=== PATIENT | female | born 1960 | race Caucasian/White ===

== ENCOUNTER → 2023-09-24 09:46 | Outpatient (REF) | payer OTHER, SELFPAY ==
[2023-09-24 10:30] LABS: % Basophils 1.1 % (0-2); % Eosinophils 4.4 % (0-6); % Immature Granulocytes 0.2 % (0-0.5); % Lymphocytes 41.7 % (20.5-51.1); % Neutrophils 45.6 % (42.2-75.2); Absolute Basophils 0.1 10^3/uL (0-0.2); Absolute Eosinophils 0.2 10^3/uL (0-0.7); Absolute Lymphocytes 1.9 10^3/uL (1.2-3.4); Absolute Monocytes 0.3 10^3/uL (0.1-0.6); Absolute Neutrophils 2.1 10^3/uL (1.4-6.5); Hematocrit 39.9 % (37.0-47.0); Hemoglobin 13.3 g/dL (12.0-16.0); Mean Corp Hgb Conc. 33.3 g/dL (33.0-37.0); Mean Corpuscular Hgb 29.6 pg (27.0-31.0); Mean Corpuscular Volume 88.9 fL (81.0-99.0); Mean Platelet Volume 9.9 fL (7.4-10.4); Nucleated Red Blood Cells % 0 %; Platelet Count 202 10^3/uL (130-400); Red Blood Cell Count 4.49 10^6/uL (4.20-5.40); Red Cell Dist. Width 13.7 % (11.5-14.5); White Blood Cell Count 4.6 10^3/uL (4.8-10.8)
[2023-09-24 11:14] LABS: ALT (SGPT) 23 U/L (0-35); AST (SGOT) 36 U/L (14-36); Albumin 4.3 g/dl (3.5-5.0); Alkaline Phosphatase 64 U/L (38-126); Blood Urea Nitrogen 20 mg/dl (7-17); Calcium 9.4 mg/dl (8.4-10.2); Carbon Dioxide 26 mmol/L (22-30); Chloride 104 mmol/L (98-107); Glucose 89 mg/dl (70-99); HDL Cholesterol 95 mg/dl; LDL Cholesterol, Calculated 83 mg/dl; Potassium 4.5 mmol/L (3.5-5.1); Sodium 137 mmol/L (135-145); Total Bilirubin 0.5 mg/dl (0.2-1.3); Total Cholesterol 190 mg/dl (50-199); Total Protein 6.9 g/dl (6.3-8.2); Triglyceride 62 mg/dl (10-149); Very Low Density Lipoprotein 12 mg/dl (0-30); eGFR > 60.00
[2023-09-24 11:30] LABS: TSH Reflex To Free T4 1.66 uIU/ml (0.47-4.68)
[2023-09-24 12:16] LABS: Glycohemoglobin (HgbA1c) 5.9 % (4.0-5.6)
== END ==
LOC: REG 09:46
PROVIDERS: ATTENDING PHYSICIAN Internal Medicine
DX: R73.09 Other abnormal glucose (principal); K52.832 Lymphocytic colitis; Z13.220 Encounter for screening for lipoid disorders
CPT/HCPCS: 36415; 80053; 80061; 83036; 84443; 85025

== ENCOUNTER → 2024-02-04 09:24 | Outpatient (REF) | payer OTHER, SELFPAY | LOC: WDC 09:24 | PROVIDERS: ATTENDING PHYSICIAN Family Medicine | DX: Z12.31 Encounter for screening mammogram for malignant neoplasm of breast (principal) | CPT/HCPCS: 77063; 77067 ==

== ENCOUNTER → 2024-03-23 11:07 | Outpatient (REF) | payer OTHER, SELFPAY ==
[2024-03-23 11:51] LABS: % Basophils 0.8 % (0-2); % Eosinophils 5.2 % (0-6); % Immature Granulocytes 0.2 % (0-0.5); % Lymphocytes 38.6 % (20.5-51.1); % Monocytes 5.6 % (1.7-9.3); % Neutrophils 49.6 % (42.2-75.2); Absolute Eosinophils 0.3 10^3/uL (0-0.7); Absolute Lymphocytes 1.9 10^3/uL (1.2-3.4); Absolute Monocytes 0.3 10^3/uL (0.1-0.6); Absolute Neutrophils 2.5 10^3/uL (1.4-6.5); Hematocrit 41.7 % (37.0-47.0); Mean Corp Hgb Conc. 33.6 g/dL (33.0-37.0); Mean Corpuscular Hgb 28.8 pg (27.0-31.0); Mean Corpuscular Volume 85.8 fL (81.0-99.0); Mean Platelet Volume 9.8 fL (7.4-10.4); Nucleated Red Blood Cells % 0 %; Platelet Count 204 10^3/uL (130-400); Red Blood Cell Count 4.86 10^6/uL (4.20-5.40); Red Cell Dist. Width 14.2 % (11.5-14.5)
[2024-03-23 12:11] LABS: ALT (SGPT) 29 U/L (0-35); AST (SGOT) 38 U/L (14-36); Albumin 4.7 g/dl (3.5-5.0); Alkaline Phosphatase 48 U/L (38-126); Blood Urea Nitrogen 25 mg/dl (7-17); Calcium 9.3 mg/dl (8.4-10.2); Carbon Dioxide 27 mmol/L (22-30); Chloride 102 mmol/L (98-107); Glucose 92 mg/dl (70-99); HDL Cholesterol 102 mg/dl; LDL Cholesterol, Calculated 89 mg/dl; Potassium 5.1 mmol/L (3.5-5.1); Sodium 141 mmol/L (135-145); Total Bilirubin 0.4 mg/dl (0.2-1.3); Total Cholesterol 203 mg/dl (50-199); Total Protein 7.4 g/dl (6.3-8.2); Triglyceride 62 mg/dl (10-149); Very Low Density Lipoprotein 12 mg/dl (0-30); eGFR 55.76
[2024-03-23 12:22] LABS: Glycohemoglobin (HgbA1c) 5.7 % (4.0-5.6)
[2024-03-23 12:41] LABS: TSH Reflex To Free T4 1.47 uIU/ml (0.47-4.68)
== END ==
LOC: REG 11:07
PROVIDERS: ATTENDING PHYSICIAN Family Medicine
DX: R73.02 Impaired glucose tolerance (oral) (principal); K52.832 Lymphocytic colitis; Z13.6 Encounter for screening for cardiovascular disorders; Z13.29 Encounter for screening for other suspected endocrine disorder
CPT/HCPCS: 36415; 80053; 80061; 83036; 84443; 85025

== ENCOUNTER 2024-04-28 19:06 | Emergency (ER) | payer OTHER, SELFPAY ==
[2024-04-28 19:10] VITALS: BP 140/78
--- NOTE | 2024-04-28 19:55 | ED.MUSCINJ ---
HPI-Injury
General
Chief Complaint: Fall
Source: patient
Exam Limitations: none
Time Seen by Provider: 04/28/24 19:42
History of Present Illness-Injury
Initial Injury comments:
64-year-old [id number] female presents after trip and fall. She was walking in the parking lot and her left foot twisted and she fell onto her right knee and her right hand. She complains of pain to the anterior lateral left ankle
anterior lateral right knee and the base of the hand on the right side. She did not hit her head. No anticoagulants. No neck or back pain. She has been ambulatory since the fall.
Past History
Past History
ED Past Medical History: GERD and Other (Osteoarthritis)
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
Social History
Tobacco: Non-smoker
Alcohol: Daily
Drug: None
Personal:
Living: with family
Phy Exam
Physical Exam
Physical Exam:
General: Well-appearing female no acute respiratory distress
Musculoskeletal exam: The right hand is slightly swollen and tender over the base of the fifth metacarpal there is no deformities or malrotation of the finger. The distal radius and ulna are nontender. She is able to flex and extend as well as
radial and ulnarly deviate however this is more painful for her. The right knee is with abrasion and ecchymosis of the anterior lateral knee but no deformities effusion. She is nontender. She has good range of motion able to straight leg raise
the knee is stable ligament exam. The left foot and ankle were examined there is slight swelling in the anterior lateral ankle/proximal foot. Skin with abrasion to the right knee but intact otherwise
Neurologic exam: Alert and oriented.
Injury Course
Orders/Labs/Results
Orders:
Orders
04/28/24 19:11
CR Ankle - Left Min 3 Views Urgent
Comment:
Reason For Exam: fall
CR Hand - Right Min 3 Views Urgent
Comment:
Reason For Exam: fall
CR Knee- Right 4 Or More View* Urgent
Comment:
Reason For Exam: fall
Foot, Left 3 View [CR Foot - Left Min 3 Views] Urgent
Comment:
Reason For Exam: fall
04/28/24 19:54
[place] Wrist Right-Tx ONCE
MDM/Problems Addressed
Differential Diagnosis Includes:
Patient presents after mechanical fall mainly with right hand pain but also noted right knee and left ankle pain. X-rays of the left foot and ankle were obtained x-rays of the right knee and right hand were obtained I personally visualized all of
these films and there is no acute fracture or dislocation. She is most tender over the right hand second look at the hand x-rays again were negative. Will place in universal splint and recommend ibuprofen and Tylenol with needed follow-up for
possible occult injury
*Critical Care Note
Total Time (30-74mins, 75-104mins- exclusive of procedures): Not Applicable
ED Attending Note
-
Portions of this chart may have been created with voice recognition software.� Occasional wrong word or��sound alike� substitutions may have occurred due to the inherent limitations of voice recognition software.
Discharge Plan
Departure
Patient Disposition: Home (Routine Discharge)
Date of Disposition: 04/28/24
Time of Disposition: 19:59
Patient with high blood pressure during this ER visit?: No
Discharge Problem:
Hand sprain
Instructions: Contusion (DC), Muscle and bone pain - Discharge instructions
Prescriptions:
No Action
citalopram 20 MG tablet
20 mg PO DAILY
omeprazole [Prilosec] 10 MG capsule,delayed release(DR/EC)
10 mg PO DAILYPRN PRN (Reason: reflux)
ascorbic acid (vitamin C) 250 MG tablet,chewable
500 mg PO DAILY
multivit with min-folic acid [Multivitamin Gummies] 200 MCG tablet,chewable
1 tab PO DAILY
melatonin 5 MG tablet
30 mg sublingual HS
cannabidiol [Epidiolex] 1 UNIT solution
1 cap PO HS
cannabidiol [Epidiolex] 1 UNIT solution
1 ml sublingual DAILY
Patient Comments:
patient says she get this at the [facility] and that is has a small amount a thc in it and take tinture in am and capsules at bedtime
mupirocin 1 APPLIC ointment
1 tube topical BID Qty: 1 0RF
amoxicillin-pot clavulanate 1 TABLET tablet
1 tab PO BID 21 Days Qty: 42 0RF
hydrocodone-acetaminophen 5-300 mg tablet
0.5 tab PO BID PRN (Reason: pain) Qty: 6 0RF
Referrals:
Esau Weaver MD [Active] -
Activity Restrictions/Additional Instructions:
Use splint for right hand for support. Use ibuprofen or Tylenol for pain. Return here if worse otherwise follow-up with orthopedics for further evaluation
Interventions
Interventions:
*Risk Screen - Suicide Last Done: 04/28/24 19:10
*General Assessment Last Done: 04/28/24 19:10
*Neglect/Abuse Screening Last Done: 04/28/24 19:10
Discharge Date and Time
Print Language: SWEDISH
[2024-04-28 20:32] VITALS: BP 126/83
== END 2024-04-28 20:36 | disposition home or self-care (01) ==
LOC: EMR 19:06
PROVIDERS: EMERGENCY PHYSICIAN Emergency Medicine; FAMILY PHYSICIAN Family Medicine
DX: S63.91XA Sprain of unspecified part of right wrist and hand, initial encounter (principal); S80.01XA Contusion of right knee, initial encounter; S80.211A Abrasion, right knee, initial encounter; M25.472 Effusion, left ankle; W01.0XXA Fall on same level from slipping, tripping and stumbling without subsequent striking against object, initial encounter; K21.9 Gastro-esophageal reflux disease without esophagitis
CPT/HCPCS: 29125; 99284; 73130; 73564; 73610; 73630

== ENCOUNTER → 2024-05-28 08:36 | Outpatient (REF) | payer OTHER, SELFPAY | LOC: RAD 08:36 | PROVIDERS: ATTENDING PHYSICIAN Family Medicine | DX: M81.0 Age-related osteoporosis without current pathological fracture (principal) | CPT/HCPCS: 77080 ==

== ENCOUNTER → 2024-07-14 08:48 | Outpatient (REF) | payer OTHER, SELFPAY ==
[2024-07-14 10:37] LABS: % Basophils 0.7 % (0-2); % Eosinophils 5.9 % (0-6); % Immature Granulocytes 0.5 % (0-0.5); % Lymphocytes 35.4 % (20.5-51.1); % Monocytes 7.9 % (1.7-9.3); % Neutrophils 49.6 % (42.2-75.2); Absolute Eosinophils 0.2 10^3/uL (0-0.7); Absolute Lymphocytes 1.4 10^3/uL (1.2-3.4); Absolute Monocytes 0.3 10^3/uL (0.1-0.6); Hemoglobin 13.1 g/dL (12.0-16.0); Mean Corp Hgb Conc. 33.6 g/dL (33.0-37.0); Mean Corpuscular Volume 89.4 fL (81.0-99.0); Mean Platelet Volume 10.1 fL (7.4-10.4); Nucleated Red Blood Cells % 0 %; Platelet Count 210 10^3/uL (130-400); Red Blood Cell Count 4.36 10^6/uL (4.20-5.40); Red Cell Dist. Width 14.4 % (11.5-14.5); White Blood Cell Count 4.1 10^3/uL (4.8-10.8)
[2024-07-14 10:50] LABS: Erythrocyte Sed Rate 2 mm/hour (0-20)
[2024-07-14 10:59] LABS: ALT (SGPT) 23 U/L (0-35); AST (SGOT) 33 U/L (14-36); Albumin 4.5 g/dl (3.5-5.0); Alkaline Phosphatase 55 U/L (38-126); Blood Urea Nitrogen 20 mg/dl (7-17); Calcium 8.9 mg/dl (8.4-10.2); Carbon Dioxide 29 mmol/L (22-30); Chloride 103 mmol/L (98-107); Glucose 91 mg/dl (70-99); Sodium 138 mmol/L (135-145); Total Bilirubin 0.7 mg/dl (0.2-1.3); Total Protein 6.8 g/dl (6.3-8.2); eGFR > 60.00
[2024-07-14 11:08] LABS: C-Reactive Protein < 5.00 mg/L (0.0-10.00)
[2024-07-16 07:31] LABS: CCP Antibody IgG/IgA 5 Units (0-19)
[2024-07-16 17:33] LABS: Rheumatoid Agglutinin Less Than 10 IU (<10 IU)
== END ==
LOC: REG 08:48
PROVIDERS: ATTENDING PHYSICIAN Physician Assistant; FAMILY PHYSICIAN Family Medicine
DX: E55.9 Vitamin D deficiency, unspecified (principal); M06.9 Rheumatoid arthritis, unspecified; M81.0 Age-related osteoporosis without current pathological fracture; Z51.81 Encounter for therapeutic drug level monitoring; M79.643 Pain in unspecified hand; M54.9 Dorsalgia, unspecified
CPT/HCPCS: 36415; 72040; 72072; 72100; 73130; 80053; 85025; 85652; 86140; 86200; 86430

== ENCOUNTER → 2024-09-22 09:22 | Outpatient (REF) | payer OTHER, SELFPAY ==
[2024-09-22 10:51] LABS: % Basophils 1.1 % (0-2); % Eosinophils 5.5 % (0-6); % Immature Granulocytes 0.2 % (0-0.5); % Monocytes 7.5 % (1.7-9.3); % Neutrophils 46.7 % (42.2-75.2); Absolute Basophils 0.1 10^3/uL (0-0.2); Absolute Eosinophils 0.3 10^3/uL (0-0.7); Absolute Lymphocytes 1.8 10^3/uL (1.2-3.4); Absolute Monocytes 0.3 10^3/uL (0.1-0.6); Absolute Neutrophils 2.1 10^3/uL (1.4-6.5); Hemoglobin 13.4 g/dL (12.0-16.0); Mean Corp Hgb Conc. 33.5 g/dL (33.0-37.0); Mean Corpuscular Hgb 29.5 pg (27.0-31.0); Mean Corpuscular Volume 87.9 fL (81.0-99.0); Mean Platelet Volume 10.1 fL (7.4-10.4); Nucleated Red Blood Cells % 0 %; Platelet Count 190 10^3/uL (130-400); Red Blood Cell Count 4.55 10^6/uL (4.20-5.40); Red Cell Dist. Width 13.7 % (11.5-14.5); White Blood Cell Count 4.6 10^3/uL (4.8-10.8)
[2024-09-22 11:15] LABS: ALT (SGPT) 24 U/L (0-35); AST (SGOT) 32 U/L (14-36); Albumin 4.7 g/dl (3.5-5.0); Alkaline Phosphatase 50 U/L (38-126); Blood Urea Nitrogen 20 mg/dl (7-17); Calcium 9.5 mg/dl (8.4-10.2); Carbon Dioxide 26 mmol/L (22-30); Chloride 105 mmol/L (98-107); Glucose 87 mg/dl (70-99); HDL Cholesterol 80 mg/dl; LDL Cholesterol, Calculated 114 mg/dl; Potassium 4.6 mmol/L (3.5-5.1); Sodium 141 mmol/L (135-145); Total Bilirubin 0.7 mg/dl (0.2-1.3); Total Cholesterol 207 mg/dl (50-199); Total Protein 6.9 g/dl (6.3-8.2); Triglyceride 65 mg/dl (10-149); Very Low Density Lipoprotein 13 mg/dl (0-30); eGFR > 60.00
[2024-09-23 10:52] LABS: Glycohemoglobin (HgbA1c) 5.7 % (4.0-5.6)
== END ==
LOC: REG 09:22
PROVIDERS: ATTENDING PHYSICIAN Family Medicine
DX: R73.02 Impaired glucose tolerance (oral) (principal); K52.832 Lymphocytic colitis; R53.83 Other fatigue; Z13.6 Encounter for screening for cardiovascular disorders
CPT/HCPCS: 36415; 80053; 80061; 83036; 85025

== ENCOUNTER → 2025-02-09 13:33 | Outpatient (REF) | payer OTHER, SELFPAY | LOC: WDC 13:33 | PROVIDERS: ATTENDING PHYSICIAN Family Medicine | DX: Z12.31 Encounter for screening mammogram for malignant neoplasm of breast (principal) | CPT/HCPCS: 77063; 77067 ==

== ENCOUNTER → 2025-03-16 10:20 | Outpatient (REF) | payer OTHER, SELFPAY ==
[2025-03-16 13:06] LABS: ALT (SGPT) 22 U/L (0-35); AST (SGOT) 35 U/L (14-36); Albumin 4.3 g/dl (3.5-5.0); Alkaline Phosphatase 46 U/L (38-126); Blood Urea Nitrogen 17 mg/dl (7-17); Calcium 8.8 mg/dl (8.4-10.2); Carbon Dioxide 28 mmol/L (22-30); Chloride 106 mmol/L (98-107); Glucose 89 mg/dl (70-99); HDL Cholesterol 84 mg/dl; LDL Cholesterol, Calculated 102 mg/dl; Potassium 4.4 mmol/L (3.5-5.1); Sodium 139 mmol/L (135-145); Total Protein 6.8 g/dl (6.3-8.2); Very Low Density Lipoprotein 11 mg/dl (0-30); eGFR > 60.00
[2025-03-16 13:21] LABS: Hematocrit 37.1 % (37.0-47.0); Hemoglobin 12.4 g/dL (12.0-16.0); Mean Corp Hgb Conc. 33.4 g/dL (33.0-37.0); Mean Corpuscular Volume 89.8 fL (81.0-99.0); Nucleated Red Blood Cells % 0 %; Platelet Count 178 10^3/uL (130-400); Red Cell Dist. Width 14.1 % (11.5-14.5)
[2025-03-16 14:05] LABS: Glycohemoglobin (HgbA1c) 5.9 % (4.0-5.9)
== END ==
LOC: REG 10:20
PROVIDERS: ATTENDING PHYSICIAN Family Medicine
DX: R73.02 Impaired glucose tolerance (oral) (principal); K52.832 Lymphocytic colitis; R53.83 Other fatigue; Z13.6 Encounter for screening for cardiovascular disorders; Z13.29 Encounter for screening for other suspected endocrine disorder
CPT/HCPCS: 36415; 80053; 80061; 83036; 84443; 85025